=== PATIENT | female | born 1995 | race Two or more races ===

== ENCOUNTER 2025-09-15 12:41 | Emergency (ER) | payer OTHER ==
[~2025-09-15] VITALS: Ht 154.9 cm; Wt 99.8 kg
[2025-09-15] MEDS ORDERED: ZYRTEC10 M3 PO (14:45)
[2025-09-15 18:37] LABS: BASO % 0.3 % (0.1-1.2); EOS # 0.40 (0.04-0.54); EOS % 3.5 % (0.7-7.0); LYMPH # 3.73 (1.18-3.74); LYMPH % 32.5 % (19.3-53.1); MEAN PLATELET VOLUME 8.50 fl (9.4-12.4); MONO # 0.56 (0.24-0.82); MONO % 4.9 % (4.7-12.5); NEUT # 6.70 (1.56-6.13); NEUT % 58.5 % (34.0-71.1); RED CELL DISTRIBUTION WIDTH 12.5 % (11.6-14.4)
[2025-09-15 19:12] LABS: INR 0.95
[2025-09-15 19:16] LABS: ALT/SGPT 29.0 U/L (12-78); AST/SGOT 18.0 U/L (15-37); BILIRUBIN TOTAL 0.24 mg/dL (0.3-1.2); BUN CREA RATIO 26.0 (7.0-25.0); CREATININE SERUM 0.72 mg/dL (0.55-1.02); GFR 96.45; GLOBULINA 4.9 G/DL (2.4-3.5); GLUCOSE FASTING 87.0 mg/dL (65-100); OSMOLALITY SERUM 281.0 MOSM/KG (275-295)
== END 2025-09-15 21:16 | disposition home or self-care (01) ==
LOC: ER 12:41
PROVIDERS: General Practice
DX: N93.8 Other specified abnormal uterine and vaginal bleeding (principal); R53.1 Weakness